=== PATIENT | female | born 1985 | race Caucasian/White ===

== ENCOUNTER 2022-01-29 09:44 | Emergency (ER) | payer OTHER, SELFPAY ==
[2022-01-29 09:49] VITALS: BP 139/98; PULSE 114; RESP 14; TEMP 36.7; O2SAT 95; BMI 34.9
--- NOTE | 2022-01-29 10:21 | EX.ED.DYSGE1 ---
HPI History of Present Illness Chief Complaint: Edema Informant: patient Onset/Context/Timing Onset: Days (3) Context: Gradual Onset Timing: Continuous Quality: Swelling Location: Bilateral lower extremities and bilateral wrist and hands Worsened by: Nothing Relieved by: Nothing Narrative Narrative: Patient presents with lower extremity swelling that has been getting worse over the last 3 days. Patient states it is gradually getting worse. Patient states it is worse on the left lower leg than the right. Patient states it is also in both wrists and hands. Patient also admits to a rash over her face. Patient states this rash is exactly the same as it was when she was diagnosed with shingles in the past. Patient states the rash is painful. Patient denies any discharge or drainage. Patient is 11 weeks . PFSH PFSH Home Medications valacyclovir [Valtrex] 1,000 mg PO TID #20 tab 01/29/22 [Rx Last Taken Unknown] Allergy/AdvReac Type Severity Reaction Status Date / Time amoxicillin Allergy Rash Verified 01/29/22 09:49 esomeprazole [From Nexium] Allergy Rash Verified 01/29/22 09:49 nickel Allergy Rash Verified 01/29/22 09:49 Surgical History (Updated 01/29/22 @ 10:[address] Aiden Palmer DO) Hx of appendectomy Social History Smoking Status: Never smoker ROS ROS ED Constitutional Constitutional ED: Denies chills or fever(s) Eyes Eyes: Denies blurry vision or change in vision ENT ENT ED: Denies rhinorrhea or sore throat Cardiovascular Cardiovascular: Denies chest pain or palpitations Respiratory/Chest Respiratory/Chest: Denies cough or dyspnea Gastrointestinal Gastrointestinal: Reports diarrhea, nausea and vomiting Genitourinary Genitourinary ED: Denies dysuria or hematuria Musculoskeletal Musculoskeletal: Denies back pain or neck pain Integumentary Reports rash; Denies abscess Neurologic Neurologic: Denies headache(s) or weakness Allergic/Immunologic Allergic/Immunologic ED: Denies mouth swelling or urticaria EXAM Physical Exam Const Vital Signs: 01/29/22 09:49 01/29/22 11:33 Temperature 98.1 F Temperature Source Temporal Pulse Rate 114 H Respiratory Rate 14 Respiratory Effort Normal Respiratory Pattern Normal Blood Pressure 139/98 H Blood Pressure Mean 111 Pulse Ox 95 Oxygen Delivery Method Room Air Positive well nourished and well developed General Appearance ED: well developed and NAD HEENT Reports moist mucous membranes Neck supple and no JVD Resp normal respiratory effort and clear to auscultation bilaterally Cardio regular rate and regular rhythm GI non-tender Palpation: soft Extremity Extremity Narrative: There is mild tenderness and edema of the lower extremities bilaterally. There is no pain with dorsiflexion of the ankle. There is full range of motion. There are no deformities noted. General Extremety ED: Yes edema and tenderness General Extremity: edema Neuro oriented x3, CN's II-XII intact bilaterally and no sensory deficits noted Sensorium / Orientation: alert Motor Exam: strength 5/5 throughout Skin Skin Narrative: There is a patchy vesicular rash over the left cheek and left upper lip. There is no discharge or drainage. There is no crusting noted. There are no petechia noted. There is no involvement of mucous membranes. MDM MDM MDM Narrative Medical decision making narrative: Venous duplex of the lower extremities was obtained and was negative. CBC shows a mild leukocytosis of 11.4. Hemoglobin was 11.7 and hematocrit was 33.7. PT was INR and PTT were within normal limits. Comprehensive metabolic profile was within normal limits. Quantitative hCG was 75,000. Patient was advised of her findings. Patient was instructed to keep her legs elevated. Patient was given an prescription for Valtrex for the shingles on her face. Patient has an appoint with her DAY CARE DIRECTOR in 4 days. Patient was instructed to keep this appointment. Patient was instructed return if worse in any way. Patient understood and was agreeable with the plan. All questions were answered. Lab Data Attestation: I reviewed the patient's lab results. Labs: Laboratory Results - last 24 hr 01/29/22 01/29/22 01/29/22 11:30 11:30 11:30 WBC 11.4 H RBC 3.61 L Hgb 11.7 L Hct 33.7 L MCV 93.4 MCH 32.4 H MCHC 34.7 RDW Std Deviation 41.4 RDW Coeff of Kristopher 12.1 Plt Count 350 MPV 9.5 Immature Gran % (Auto) 0.300 Neut % (Auto) 79.3 H Lymph % (Auto) 13.6 L Isabela % (Auto) 5.5 Eos % (Auto) 1.1 Baso % (Auto) 0.2 Absolute Neuts (auto) 9.0 H Absolute Lymphs (auto) 1.55 Nucleated RBC % 0 PT 12.5 INR 1.0 APTT 28.6 Sodium 138 Potassium 3.3 L Chloride 107 Carbon Dioxide 24.0 Anion Gap 7 BUN 4 L Creatinine 0.51 L Estim Creat Clear Calc 139.86 Est GFR (MDRD) Af Amer 176 Est GFR (MDRD) Non-Af 146 BUN/Creatinine Ratio 7.8 L Glucose 79 Calcium 8.7 Total Bilirubin 0.30 AST 31 ALT 24 Alkaline Phosphatase 61 Total Protein 6.9 Albumin 3.2 Globulin 3.7 Albumin/Globulin Ratio 0.9 Lipase 107 HCG, Quant 01/29/22 11:30 WBC RBC Hgb Hct MCV MCH MCHC RDW Std Deviation RDW Coeff of Kristopher Plt Count MPV Immature Gran % (Auto) Neut % (Auto) Lymph % (Auto) Isabela % (Auto) Eos % (Auto) Baso % (Auto) Absolute Neuts (auto) Absolute Lymphs (auto) Nucleated RBC % PT INR APTT Sodium Potassium Chloride Carbon Dioxide Anion Gap BUN Creatinine Estim Creat Clear Calc Est GFR (MDRD) Af Amer Est GFR (MDRD) Non-Af BUN/Creatinine Ratio Glucose Calcium Total Bilirubin AST ALT Alkaline Phosphatase Total Protein Albumin Globulin Albumin/Globulin Ratio Lipase HCG, Quant 90428 H Radiography Diagnostic Testing: Clinical Impression(s) from Imaging Studies Venous Doppler Study 01/29/22 10:25 Interpretation Summary No evidence for acute deep venous thrombosis bilateral lower extremities with patent and compressible bilateral great saphenous veins. Ordering Physician: Aiden Palmer Performed By: Sharron Pandya RVT Discharge Plan Triage Chief Complaint: Edema ED Provider: Aiden Palmer Dx/Rx/DC Orders Clinical Impression: Edema, peripheral, Varicella zoster, Instructions: ED Peripheral Edema, Bilateral, ED Shingles (Herpes Zoster), ED Established ... Prescriptions: New valacyclovir [Valtrex] 1 gram tablet 1,000 mg PO TID Qty: 20 RF: 0 Primary Care Provider: Pj Armas Referrals: Pj Armas [Primary Care Provider] - 5-7 Days Activity Restrictions/Additional Instructions: Follow-up with your DAY CARE DIRECTOR on Wednesday as scheduled. Keep your legs elevated. Disposition Disposition: Home, Self Care
--- NOTE | 2022-01-29 10:25 | VDLE_ITS ---
Reason For Study: Swelling RIGHT LEFT GSV is normal. GSV is normal. CFV is compressible, spontaneous, phasic, CFV is compressible, spontaneous, phasic, competent and demonstrates normal competent, and demonstrates normal augmentation. augmentation. FV is compressible, spontaneous, phasic, FV is compressible, spontaneous, phasic, competent and demonstrates normal competent and demonstrates normal augmentation. augmentation. POP V is compressible, spontaneous, phasic, POP V is compressible, spontaneous, phasic, competent and demonstrates normal competent and demonstrates normal augmentation. augmentation. T/P Trunk is compressible. T/P Trunk is compressible. PTV is compressible. PTV is compressible. RT PerV is compressible. LT PerV is compressible. Procedure This is a venous duplex using B-mode, color flow and spectral Doppler. Exam performed portable in ED. A preliminary report was called and/or faxed to [facility]. VL/Venous Duplex US - Jem Extrem Interpretation Summary No evidence for acute deep venous thrombosis bilateral lower extremities with p atent and compressible bilateral great saphenous veins. Ordering Physician: Aiden Palmer Performed By: Sharron Pandya RVT
[2022-01-29 11:34] LABS: Absolute Lymphocyte Count 1.55 X10^3/uL (0.83-4.51); Basophil# 0.02 X10^3/uL; Basophil% 0.2 % (0-1); Eosinophil# 0.12 X10^3/uL; Eosinophils% 1.1 % (0-5); Hematocrit 33.7 % (37-47); Hemoglobin 11.7 g/dL (12.0-15.0); Lymphocyte # 1.55 X10^3/ul (0.83-4.51); Lymphocyte % 13.6 % (19-41); Mean Corp Hgb Conc 34.7 g/dL (32-36); Mean Corpuscular Hgb 32.4 pg (27.0-32.0); Mean Corpuscular Volume 93.4 fL (81-99); Mean Platelet Vol. 9.5 fl (6.2-12.0); Monocyte# 0.63 X10^3/uL; Monocyte% 5.5 % (0-10); NRBC Flagged by Analyzer 0 % (0-5); Neutrophil # 9.03 X10^3/uL (2.7-7.7); Neutrophil % 79.3 % (47-70); Platelet Count 350 K/mm3 (150-450); RBC Distribution Width CV 12.1 % (11.6-14.6); RBC Distribution Width SD 41.4 fl (35.1-43.9); Red Blood Count 3.61 M/mm3 (4.2-5.4); White Blood Count 11.4 K/mm3 (4.4-11.0)
[2022-01-29 11:44] LABS: Prothrombin Time (Protime)PT. 12.5 SECONDS (11.7-14.9)
[2022-01-29 11:45] LABS: Partial Thromboplast Time 28.6 Seconds (24.1-36.2)
[2022-01-29 11:50] LABS: ALB/GLOB Ratio 0.9 RATIO (0.9-2.4); AST(SGOT) 31 U/L (15-37); Alanine Aminotransfer ALT/SGPT 24 U/L (13-56); Albumin, Serum 3.2 g/dL (3.2-5.0); Alkaline Phosphatase 61 U/L (45-117); Anion Gap 7 (5-15); BUN 4 mg/dL (7-18); BUN/Creat Ratio 7.8 RATIO (10-20); Calcium,Total 8.7 mg/dL (8.5-10.1); Chloride 107 mmol/L (98-107); Creatinine, Serum 0.51 mg/dL (0.55-1.02); EST Glomerular Filtration Rate 146 mL/min (>60); Est Glom Filt Rate - Afr Amer 176 mL/min (>60); Estimated Creatinine Clearance 139.86 ml/min; Globulin 3.7 g/dL (2.2-4.2); Glucose 79 mg/dL (74-106); Lipase 107 U/L (73-393); Potassium 3.3 mmol/L (3.5-5.1); Protein, Total 6.9 g/dL (6.4-8.2); Sodium Level 138 mmol/L (136-145)
[2022-01-29 12:16] LABS: hCG Titer Quant., Serum 75000 mIU/mL (1-3)
== END 2022-01-29 13:19 | disposition home or self-care (01) ==
PROVIDERS: Emergency Provider Emergency Medicine; Visit Provider Emergency Medicine
DX: O98.511 Other viral diseases complicating pregnancy, first trimester (principal); B02.9 Zoster without complications; O12.01 Gestational edema, first trimester; R19.7 Diarrhea, unspecified; R11.2 Nausea with vomiting, unspecified; Z3A.11 11 weeks gestation of pregnancy
CPT/HCPCS: 80053; 83690; 84702; 85025; 85610; 85730; 93970; 99282; A4216

== ENCOUNTER 2024-02-10 21:24 | Emergency (ER) | payer OTHER, SELFPAY ==
[2024-02-10 21:25] VITALS: BP 158/90; PULSE 117; RESP 20; TEMP 36.4; O2SAT 99; BMI 28.8
--- NOTE | 2024-02-10 21:56 | CT_ITS ---
STUDY: CT ABDOMEN AND PELVIS WITH CONTRAST REASON FOR EXAM: Female, 38 years old. lower abd pain, vomiting RADIATION DOSAGE (If Supplied By Facility): CTDIvol = ( 16.19 ) mGy, DLP = ( 940.74 ) mGycm TECHNIQUE: Transaxial images were obtained from the dome of the diaphragm to the symphysis pubis without oral contrast. IV 100mL Isovue-300 was administered. Sagittal and coronal images were reconstructed. Individualized dose optimization techniques were used for this CT. COMPARISON: None. FINDINGS: The visualized lung bases are unremarkable. The visualized portions of the heart are within normal limits. Normal liver. Normal gallbladder and extrahepatic biliary system. Normal spleen. Normal pancreas. Normal bilateral adrenal glands. Normal right kidney. Normal left kidney. Prominent ureters bilaterally with stranding of the periureteral fat but no obstructing stone. Findings are suggestive of pyelonephritis. Normal visualized stomach. Normal small intestine. Normal colon. There is non-visualization of the appendix. Normal abdominal aorta. Normal inferior vena cava. Normal retroperitoneum. Normal urinary bladder. There is a small umbilical hernia containing fat. Mild dextroscoliosis lumbar spine. CT/Abdomen/Pelvis W IV Cont ONLY IMPRESSION: Suspect bilateral pyelonephritis. Electronically Signed: Jim Jorgnesen MD at 23:35 EDT ,
[2024-02-10 22:05] LABS: Bacteria 0 SEEN /hpf (None Seen); Mucous, Urine 0 SEEN /hpf (<or=2+); Red Blood Cells-Urine 0 SEEN /hpf (0-5); Squamous Epithelial Cells - UA 0 SEEN /hpf (5-10)
[2024-02-10 22:08] LABS: Absolute Lymphocyte Count 1.88 X10^3/uL (0.83-4.51); Absolute Neutrophil Count 13.7 X10^3/uL (2.0-7.7); Basophil# 0.05 X10^3/uL; Basophil% 0.3 % (0-1); Eosinophil# 0.13 X10^3/uL; Eosinophils% 0.8 % (0-5); Hematocrit 34.3 % (37-47); Hemoglobin 11.8 g/dL (12.0-15.0); Lymphocyte # 1.88 X10^3/ul (0.83-4.51); Lymphocyte % 11.2 % (19-41); Mean Corp Hgb Conc 34.4 g/dL (32-36); Mean Corpuscular Hgb 33.1 pg (27.0-32.0); Mean Corpuscular Volume 96.1 fL (81-99); Mean Platelet Vol. 10.2 fl (6.2-12.0); Monocyte# 0.86 X10^3/uL; Monocyte% 5.1 % (0-10); NRBC Flagged by Analyzer 0 % (0-5); Neutrophil # 13.74 X10^3/uL (2.7-7.7); Neutrophil % 82.2 % (47-70); Platelet Count 288 K/mm3 (150-450); RBC Distribution Width CV 12.3 % (11.6-14.6); RBC Distribution Width SD 43.6 fl (35.1-43.9); Red Blood Count 3.57 M/mm3 (4.2-5.4); White Blood Count 16.7 K/mm3 (4.4-11.0)
[2024-02-10 22:09] LABS: Color, Urine Straw (Yellow); Glucose, Dipstick Normal (Normal); Ketone-Dipstick Negative (Negative); Leukocyte Esterase-Dipstick 500 /ul (Negative); Nitrite-Dipstick Negative (Negative); Occult Blood-Urine 250 /ul (Negative); Protein-Dipstick 100 mg/dl (Negative); Specific Gravity, Urine 1.005 (1.002-1.030); Urine Bilirubin Dipstick Negative (Negative); Urine Clarity Sl. Cloudy (Clear); Urine Urobilinogen Normal (Normal); Urine pH 6.5 (5.0 - 8.0)
[2024-02-10] MEDS: Ondansetron 4 MG/2 ML Vial IV (22:09)
[2024-02-10] MEDS: Morphine 4 MG/ML Syringe IV (22:09)
[2024-02-10] MEDS: 0.9% Normal Saline (1000mL) 1,000 ML 999 ML IV (22:10)
[2024-02-10 22:25] LABS: ALB/GLOB Ratio 0.8 RATIO (0.9-2.4); AST(SGOT) 16 U/L (15-37); Alanine Aminotransfer ALT/SGPT 33 U/L (13-56); Albumin, Serum 3.5 g/dL (3.2-5.0); Alkaline Phosphatase 62 U/L (45-117); Anion Gap 7 (5-15); BUN 5 mg/dL (7-18); Calcium,Total 8.8 mg/dL (8.5-10.1); Chloride 108 mmol/L (98-107); Creatinine, Serum 0.84 mg/dL (0.55-1.02); EST Glomerular Filtration Rate 82 mL/min (>60); Est Glom Filt Rate - Afr Amer 99 mL/min (>60); Estimated Creatinine Clearance 95.95 ml/min; Globulin 4.2 g/dL (2.2-4.2); Glucose 96 mg/dL (74-106); Lipase 20 U/L (13-75); Potassium 2.9 mmol/L (3.5-5.1); Protein, Total 7.7 g/dL (6.4-8.2); Sodium Level 136 mmol/L (136-145)
[2024-02-10 22:30] LABS: Internal QC Validated? YES +Cl - CLEAR BKGD; Pregnancy, Urine Negative Negative; White Blood Cells 25-50 SEEN /hpf (0-5)
--- NOTE | 2024-02-10 22:45 | EDS_ITS ---
HPI HPI - GI History of Present Illness Chief Complaint: Flank Pain Informant: patient Narrative Narrative: 38-year-old female with severe abdominal pain, that started yesterday gradually as left sided/flank pain, nothing into her back. Drinking more fluids so urinating more frequently but no other urinary symptoms, some nausea but no vomiting. 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 PFSH PFSH Home Medications ?Medication ?Instructions ?Recorded ?Last Taken ?Type meclizine 25 mg tablet 25 mg PO TID PRN PRN dizziness or 02/10/24 Unknown H istory vertigo montelukast 10 mg tablet 10 mg PO DAILY 02/10/24 Unknown History norethindrone 1 mg-e. estradiol 20 1 tab PO DAILY 02/10/24 Unknown History mcg (24)-iron 75 mg (4) chew tablet (Finzala) sertraline 100 mg tablet 100 mg PO DAILY 02/10/24 Unknown History ondansetron 8 mg disintegrating 8 mg PO Q8H PRN nausea and 02/11/24 Unknown Rx tablet vomiting #20 tabs oxycodone-acetaminophen 5 mg-325 1 tab PO Q4H PRN Pain 3 days #18 02/11/24 Unknown Rx mg tablet TABLETS Allergy/AdvReac Type Severity Reaction Status Date / Time amoxicillin Allergy Rash Verified 02/10/24 21:28 esomeprazole (From Nexium) Allergy Rash Verified 02/10/24 21:28 nickel Allergy Rash Verified 02/10/24 21:28 Surgical History Hx of appendectomy Social History Smoking Status: Never smoker ROS ROS ED Constitutional Constitutional ED: Denies chills or fever(s) Eyes Eyes: Denies change in vision or diplopia ENT ENT ED: Denies rhinorrhea or sore throat Cardiovascular Cardiovascular: Denies chest pain or palpitations Respiratory/Chest Respiratory/Chest: Denies cough or dyspnea Gastrointestinal Gastrointestinal: Reports abdominal pain and nausea; Denies diarrhea, melena or vomiting Genitourinary Genitourinary ED: Reports urinary frequency; Denies dysuria or hematuria Musculoskeletal Musculoskeletal: Denies back pain or neck pain Integumentary Denies abscess or rash Neurologic Neurologic: Denies headache(s), paresthesias or weakness Psychiatric Psychiatric: Denies suicidal thoughts EXAM Physical Exam Const Vital Signs: 02/10/24 21:25 02/10/24 23:25 Temperature 97.6 F L 99.6 F H Temperature Source Temporal Oral Pulse Rate 117 H 85 Respiratory Rate 20 H 18 Blood Pressure 158/90 H 133/78 H Blood Pressure Mean 112 96 Pulse Ox 99 95 Oxygen Delivery Method Room Air Room Air Positive well nourished and well developed General Appearance ED: well developed and NAD HEENT Reports moist mucous membranes normocephalic and atraumatic Eyes PERRL and EOMs intact bilaterally Neck full ROM and supple Resp normal respiratory effort and clear to auscultation bilaterally Cardio regular rate, regular rhythm and no murmurs GI non-distended GI Narrative: Moderate-severe tenderness throughout lower abdomen, no guarding or rebound tenderness. No upper abdominal tenderness. Auscultation: normoactive bowel sounds Palpation: soft Back/Spine no CVA tenderness General Back: other FROM Extremity normal to inspection General Extremety ED: Negative for edema, pulses abnormal or tenderness General Extremity: Negative for edema or pulses abnormal Neuro oriented x3, CN's II-XII intact bilaterally and no sensory deficits noted Sensorium / Orientation: awake and alert Motor Exam: strength 5/5 throughout Psych Mood & Affect: anxious Skin no rashes or lesions noted and no wounds MDM MDM MDM Narrative Medical decision making narrative: Concern would be for obstructive uropathy in addition to appendicitis or diverticulitis, bowel obstruction. I think CT is warranted especially since she has a leukocytosis. In addition to that she was treated for pain, nausea, and given IV fluids. She is improved after that and tolerating oral fluids. Her urine is suspect for infection so I sent that for culture even though she is already had a couple doses of ciprofloxacin, and we did obtain and review the CT. I reviewed the images as well as the report which I agree with, it is actually consistent with bilateral pyelonephritis. Renal function is normal. I discussed with urology Dr. Jacob, given all of this he is comfortable to patient following up as an outpatient and treating her with antibiotics Cipro, she is already been given a prescription for Cipro twice daily for 7 days which is appropriate and we are boosting it with Rocephin 1 g IV here and will send her home with prescriptions for her pain and nausea medication she is comfortable with that plan. Lab Data Attestation: I reviewed the patient's lab results. Labs: Laboratory Results - last 24 hr 02/10/24 02/10/24 21:55 22:00 WBC 16.7 H RBC 3.57 L Hgb 11.8 L Hct 34.3 L MCV 96.1 MCH 33.1 H MCHC 34.4 RDW Std Deviation 43.6 RDW Coeff of Kristopher 12.3 Plt Count 288 MPV 10.2 Immature Gran % (Auto) 0.400 Neut % (Auto) 82.2 H Lymph % (Auto) 11.2 L Carter % (Auto) 5.1 Eos % (Auto) 0.8 Baso % (Auto) 0.3 Absolute Neuts (auto) 13.7 H Absolute Lymphs (auto) 1.88 Nucleated RBC % 0 Sodium 136 Potassium 2.9 L Chloride 108 H Carbon Dioxide 21.0 Anion Gap 7 BUN 5 L Creatinine 0.84 Estim Creat Clear Calc 95.95 Est GFR (MDRD) Af Amer 99 Est GFR (MDRD) Non-Af 82 BUN/Creatinine Ratio 6.0 L Glucose 96 Calcium 8.8 Total Bilirubin 0.70 AST 16 ALT 33 Alkaline Phosphatase 62 Total Protein 7.7 Albumin 3.5 Globulin 4.2 Albumin/Globulin Ratio 0.8 L Lipase 20 Urine Color Straw Urine Clarity Sl. Cloudy Urine pH 6.5 Ur Specific Mona 1.005 Urine Protein 100 H Urine Glucose (UA) Normal Urine Ketones Negative Urine Occult Blood 250 H Urine Nitrite Negative Urine Bilirubin Negative Urine Urobilinogen Normal Ur Leukocyte Esterase 500 H Urine RBC 0 SEEN Urine WBC 25-50 SEEN Ur Squamous Epith Cells 0 SEEN Urine Bacteria 0 SEEN Urine Mucus 0 SEEN Urine Test Negative Radiography Diagnostic Testing: Clinical Impression(s) from Imaging Studies Abdomen/Pelvis CT 02/10/24 21:56 IMPRESSION: Suspect bilateral pyelonephritis. Electronically Signed: Jim Jorgensen MD at 23:35 EDT , Management Discussion w/another healthcare provider: [employer] (urology Nidia) Discharge Plan Triage Chief Complaint: Flank Pain ED Provider: Jose Christian Dx/Rx/DC Orders Clinical Impression: Pyelonephritis Instructions: Kidney Infec Dc Prescriptions: New ondansetron 8 mg tablet,disintegrating 8 mg PO Q8H PRN (Reason: nausea and vomiting) Qty: 20 0RF oxycodone-acetaminophen 5-325 mg tablet 1 tab PO Q4H PRN (Reason: Pain) 3 Days Qty: 18 0RF No Action meclizine 25 mg tablet 25 mg PO TID PRN PRN (Reason: dizziness or vertigo) montelukast 10 mg tablet 10 mg PO DAILY norethindrone-e.estradiol-iron [Finzala] 1 mg-20 mcg(24) /75 mg (4) tablet,chewable 1 tab PO DAILY sertraline 100 mg tablet 100 mg PO DAILY Primary Care Provider: jP Armas Referrals: Will Jacob MD [Med Staff - Active Staff] - (call for follow up appt) Pj Armas MD [Primary Care Provider] - Activity Restrictions/Additional Instructions: Continue your Cipro as prescribed until completed Print Language: Yoruba Disposition Disposition: Home, Self Care
[2024-02-10 23:25] VITALS: BP 133/78; PULSE 85; RESP 18; TEMP 37.6; O2SAT 95
[2024-02-11] MEDS: Ketorolac 15 MG/ML Vial IV (00:14)
[2024-02-11] MEDS: Morphine 4 MG/ML Syringe IV (00:14)
[2024-02-11] MEDS: Ceftriaxone 1 GM/50 ML BAG IV (00:20)
[2024-02-11 00:24] VITALS: BP 130/98; PULSE 80; RESP 17; TEMP 36.2; O2SAT 98
== END 2024-02-11 00:47 | disposition home or self-care (01) ==
PROVIDERS: Emergency Provider Emergency Medicine; PCP Family Medicine; Visit Provider Emergency Medicine
DX: N12 Tubulo-interstitial nephritis, not specified as acute or chronic (principal); R35.0 Frequency of micturition
CPT/HCPCS: 74177; 80053; 81001; 81025; 83690; 85025; 87086; 96365; 96375; 96376; 99284; J7030; Q9967; A4216; J2405